=== PATIENT | female | born 1990 | race Hispanic/Latino ===

== ENCOUNTER 2020-11-13 04:55 | Emergency (ER) | payer OTHER ==
[~2020-11-13] VITALS: Ht 154.9 cm; Wt 98.9 kg
[2020-11-13] MEDS ORDERED: PENICILLIN G BENZATHINE LA 1.2 MU TBX IM STA (05:32)
[2020-11-13] MEDS ORDERED: PENICILLIN G BENZATHINE LA 1.2 MU TBX ONE (05:38)
== END 2020-11-13 06:30 | disposition home or self-care (01) ==
LOC: ER 05:30
DX: H92.01 Otalgia, right ear (principal); J02.0 Streptococcal pharyngitis
CPT/HCPCS: 99282; J0561